=== PATIENT | male | born 1975 | race Caucasian/White ===

== ENCOUNTER 2021-05-18 13:45 | Emergency (ER) | payer BC ==
[~2021-05-18] VITALS: Ht 177.8 cm; Wt 86.6 kg
[2021-05-18] MEDS ORDERED: SUCR1TA PO (18:17)
[2021-05-18 18:20] VITALS: BP 132/86
[2021-05-18] MEDS ORDERED: SUCRALFATE SUSP 1GM/10ML UD PO ONE (18:20)
== END 2021-05-18 19:26 | disposition home or self-care (01) ==
LOC: M ED 13:45
DX: R22.43 Localized swelling, mass and lump, lower limb, bilateral (principal); J45.909 Unspecified asthma, uncomplicated; K21.9 Gastro-esophageal reflux disease without esophagitis; Z52.4 Kidney donor; Z88.0 Allergy status to penicillin